=== PATIENT | female | born 1965 | race Caucasian/White ===

== ENCOUNTER 2018-03-29 07:42 | Day surgery (SDC) | payer OTHER ==
[~2018-03-29 07:42] MED LIST: LIDOCAINE 2% (SDV) 5 ML INJ; PROPOFOL 200 MG INJ
[2018-03-29] MEDS ORDERED: SOD CHLORIDE 0.9% 1,000 ML IV (08:00)
[2018-03-29] MEDS: DICLOFENAC 0.1% 2.5 ML OPH OPER (08:25)
[2018-03-29] MEDS: TROPICAMIDE 1% 3 ML OPH OPER (08:26)
[2018-03-29] MEDS: CYCLOPENTOLATE/PHENYLEPH 2 ML OPH OPER (08:26)
[2018-03-29] MEDS: MOXIFLOXACIN 0.5% 3 ML OPH OPER (08:26)
[2018-03-29] MEDS ORDERED: DEXTROSE 50% 50 ML SYRINGE (08:42)
[2018-03-29] MEDS: DEXTROSE 50% 50 ML SYRINGE IV ×2 (08:44→10:58)
[2018-03-29] MEDS ORDERED: NA HYALURONATE/CHONDROITIN 0.5 ML SYG (10:39)
[2018-03-29] MEDS: CEFAZOLIN 1 GM INJ (10:39)
[2018-03-29] MEDS: DEXAMETHASONE 4 MG/ML 1 ML INJ (10:39)
[2018-03-29] MEDS ORDERED: LIDOCAINE 4% (MPF) 5 ML INJ (10:39)
[2018-03-29] MEDS: CARBACHOL 0.01% 1.5 ML OPH INJ (10:39)
== END 2018-03-29 13:50 | disposition home or self-care (01) ==
LOC: SDS 07:42
DX: H25.11 Age-related nuclear cataract, right eye (principal); I10 Essential (primary) hypertension; E78.5 Hyperlipidemia, unspecified; E11.9 Type 2 diabetes mellitus without complications
CPT/HCPCS: 66984; 82962

== ENCOUNTER 2018-06-14 06:25 | Day surgery (SDC) | payer OTHER ==
[2018-06-14] MEDS: DICLOFENAC 0.1% 2.5 ML OPH OPER (07:28)
[2018-06-14] MEDS: MOXIFLOXACIN 0.5% 3 ML OPH OPER (07:28)
[2018-06-14] MEDS: CYCLOPENTOLATE/PHENYLEPH 2 ML OPH OPER (07:28)
[2018-06-14] MEDS: TROPICAMIDE 1% 15 ML OPH OPER (07:28)
[2018-06-14] MEDS: SOD CHLORIDE 0.9% 1,000 ML IV (07:29)
[2018-06-14] MEDS: CEFAZOLIN 1 GM INJ (08:20)
[2018-06-14] MEDS: DEXAMETHASONE 4 MG/ML 1 ML INJ (08:20)
[2018-06-14] MEDS ORDERED: LIDOCAINE 4% (MPF) 5 ML INJ (08:20)
[2018-06-14] MEDS ORDERED: NA HYALURONATE/CHONDROITIN 0.5 ML SYG (08:20)
[2018-06-14] MEDS: CARBACHOL 0.01% 1.5 ML OPH INJ (08:20)
[2018-06-14] MEDS ORDERED: PROPOFOL 20 ML (08:36)
[2018-06-14] MEDS ORDERED: LIDOCAINE 2% (SDV) 5 ML INJ (08:36)
[2018-06-14] MEDS ORDERED: FENTAnyl 50 MCG/ML VIAL (09:17)
[2018-06-14] MEDS: FENTAnyl 50 MCG/ML VIAL IV (09:25)
[2018-06-14] MEDS ORDERED: OXYCODONE/ACETAMINOPHEN (5/325) TAB PO (09:30)
[2018-06-14] MEDS ORDERED: hydrALAzine 20 MG INJ IV (09:30)
[2018-06-14] MEDS ORDERED: ACETAMINOPHEN 500 MG TAB PO (09:30)
[2018-06-14] MEDS ORDERED: ACETAMINOPHEN 325 MG TAB PO (09:30)
[2018-06-14] MEDS ORDERED: DIPHENHYDRAMINE 50 MG INJ IV (09:30)
[2018-06-14] MEDS ORDERED: ONDANSETRON 4 MG INJ IV (09:30)
[2018-06-14] MEDS ORDERED: ALBUTEROL 0.083% (NEB) 2.5 MG/3 ML AMP HHN (09:30)
[2018-06-14] MEDS ORDERED: LABETALOL HCL 20MG INJ IV (09:30)
== END 2018-06-14 10:17 | disposition home or self-care (01) ==
LOC: SDS 06:25
DX: H25.12 Age-related nuclear cataract, left eye (principal); Z79.84 Long term (current) use of oral hypoglycemic drugs; Z79.4 Long term (current) use of insulin; I10 Essential (primary) hypertension; E78.00 Pure hypercholesterolemia, unspecified
CPT/HCPCS: 66984; 82962